=== PATIENT | male | born 1955 | race Caucasian/White ===

== ENCOUNTER 2018-03-27 15:26 | Emergency (ER) | payer MEDICAID, SELFPAY ==
[2018-03-27 15:26] VITALS: BMI 21.4
[2018-03-27 15:32] VITALS: RESP 18
--- NOTE | 2018-03-27 16:28 | C.PDOC ---
History Of Present Illness 62 y/o male with history of CAD, Stent, HTN niddm and Pancreatic cancer brought to ED by daughter with c/o blood pressure being high for several days . As per daughter,day program where patient attends notified her patient's blood pressure has been high. Patient was supposed to start taking Norvasc for blood pressure 2 weeks ago, prescrbied by Dr Ирина Campbell, but has not been compliant with change. As per daughter patient, c/o epigastric abdominal pain and denies fever , chills, nausea, vomiting, chest pain, shortness of breath or any other complaints at this time. Time Seen by Provider: 03/27/18 15:54 Chief Complaint (Nursing): High Blood Pressure History Per: Patient, Family History/Exam Limitations: no limitations Onset/Duration Of Symptoms: Days Current Symptoms Are (Timing): Still Present Past Medical History Reviewed: Historical Data, Nursing Documentation, Vital Signs Vital Signs: Last Vital Signs Temp 97.8 F 03/27/18 15:28 Pulse 61 03/27/18 15:28 Resp 18 03/27/18 15:28 BP 171/79 H 03/27/18 15:28 Pulse Ox 97 03/27/18 17:55 - Medical History PMH: Kidney Stones Surgical History: No Surg Hx Family History: States: No Known Family Hx - Social History Hx Alcohol Use: No Hx Substance Use: No - Immunization History Hx Tetanus Toxoid Vaccination: No Hx Influenza Vaccination: No Hx Pneumococcal Vaccination: No Review Of Systems Constitutional: Negative for: Fever, Chills Gastrointestinal: Positive for: Abdominal Pain. Negative for: Nausea, Vomiting , Diarrhea Genitourinary: Negative for: Dysuria, Hematuria Musculoskeletal: Negative for: Back Pain Neurological: Negative for: Weakness, Numbness Physical Exam - Physical Exam Appears: Non-toxic, No Acute Distress Skin: Warm, Dry, No Rash Head: Atraumatic, Normacephalic Eye(s): bilateral: Normal Inspection Oral Mucosa: Moist Neck: Supple Cardiovascular: Rhythm Regular Respiratory: Normal Breath Sounds, No Rales, No Rhonchi, No Wheezing Gastrointestinal/Abdominal: Soft, Tenderness (Minimal epigastric), No Guarding, No Rebound Back: No CVA Tenderness Neurological/Psych: Oriented x3, Normal Speech, Normal Cognition ED Course And Treatment - Laboratory Results Result Diagrams: 03/27/18 16:30 03/27/18 16:30 ECG: Interpreted By Me, Viewed By Me ECG Rhythm: Sinus Bradycardia Rate From EC (RA) O2 Sat by Pulse Oximetry: 97 (BPM) Medical Decision Making Medical Decision Makin pt denies any any abdominal pain, sts he never had any, nor has or had any chest pain. daughter brought pt to ed because she was concerned about elevated bp, and was unaware that pt was supposed to have started on new medication ( Norvasc 2 weeks ago. daughter sts she will see to to that he begins tonight. daughter was concerned pt may be having cardiac issue due to elevated bp. pt has no headache, dizziness cp, sob at this time. labs normal. ekg normal. cxr normal. d/c home./ pt has appt set up with Dr German for next week. Disposition Counseled Patient/Family Regarding: Studies Performed, Diagnosis, Need For Followup, Rx Given - Disposition Referrals: Carlo German MD [Staff Provider] - Disposition: HOME/ ROUTINE Disposition Time: 17:57 Condition: GOOD Additional Instructions: Please add prescribed dose of Novasc to your daily medications. Follow up with Dr German as prescrbied. Recommend establishing a relationship with a cardiiologist and a airport operations coordinator. Return to ER for any worse symptoms. Instructions: High Blood Pressure (DC) Forms: [facility] (Stateless), General Discharge Instructions - Clinical Impression Clinical Impression: Hypertension - PA / SURVEY INTERVIEWER / Resident Statement MD/DO has reviewed & agrees with the documentation as recorded. - Scribe Statement The provider has reviewed the documentation as recorded by the Ene Moore All medical record entries made by the Ene were at my direction and personally dictated by me. I have reviewed the chart and agree that the record accurately reflects my personal performance of the history, physical exam, medical decision making, and the department course for this patient. I have also personally directed, reviewed, and agree with the discharge instructions and disposition.
[2018-03-27 16:35] LABS: BASO % 0.4 % (0.0-2.0); EOS # 0.1 K/uL (0.0-0.7); EOS % 1.6 % (0.0-4.0); HEMOGLOBIN 12.6 g/dL (12.0-18.0); LYMPH % 29.5 % (20.0-40.0); MEAN CELL VOLUME 94.4 fL (80.0-94.0); MEAN CORPUSCULAR HEMOGLOBIN 32.1 pg (27.0-31.0); MEAN PLATELET VOLUME 8.5 fL (7.2-11.7); MONO # 0.6 K/uL (0.0-0.8); MONO % 9.3 % (0.0-10.0); NEUT # 3.9 K/uL (1.8-7.0); NEUT % 59.2 % (50.0-75.0); RBC 3.91 Mil/uL (4.40-5.90); RED CELL DISTRIBUTION WIDTH 13.7 % (11.5-14.5); WHITE BLOOD COUNT 6.7 K/uL (4.8-10.8)
--- NOTE | 2018-03-27 16:51 | RAD ---
Date of service: 03/27/2018 HISTORY: chest pain COMPARISON: No prior. TECHNIQUE: Chest PA and lateral FINDINGS: LUNGS: No active pulmonary disease. PLEURA: No significant pleural effusion identified. No pneumothorax apparent. CARDIOVASCULAR: Normal. OSSEOUS STRUCTURES: Mild degenerative changes. VISUALIZED UPPER ABDOMEN: Normal. OTHER FINDINGS: None. IMPRESSION: No active disease.
[2018-03-27 16:53] LABS: ALB/GLOB RATIO 1.5 (1.0-2.1); ALBUMIN 4.1 g/dL (3.5-5.0); ALT/SGPT 37 U/L (21-72); AST/SGOT 28 U/L (17-59); BLOOD UREA NITROGEN 11 mg/dL (9-20); CALCIUM 9.4 mg/dl (8.6-10.4); GFR AFRICAN-AMERICAN > 60; GFR NON-AFRICAN AMERICAN > 60; LIPASE 44 U/L (23-300)
[2018-03-27 18:08] VITALS: BP 165/73; PULSE 86; TEMP 98; O2SAT 98
--- NOTE | 2018-03-28 11:59 | CARD ---
APPROVED REPORT Date of service: 03/27/2018 EKG Measurement Heart [id number] <Conclusion> Sinus bradycardia Right bundle branch block Abnormal ECG
== END 2018-03-27 18:08 | disposition home or self-care (01) ==
LOC: C.ER 15:26
DX: I10 Essential (primary) hypertension (principal)